=== PATIENT | male | born 1950 | race Caucasian/White ===

== ENCOUNTER 2021-09-04 11:49 | Emergency (ER) | payer OTHER ==
[~2021-09-04] VITALS: Ht 170.2 cm; Wt 88.5 kg
[2021-09-04 12:28] VITALS: BP 145/121
[2021-09-04] MEDS ORDERED: IBUP-2213 PO (13:45)
[2021-09-04 13:54] VITALS: BP 145/121
== END 2021-09-04 13:54 | disposition home or self-care (01) ==
LOC: MED 11:49
DX: R60.9 Edema, unspecified (principal)
CPT/HCPCS: 99282